=== PATIENT | female | born 1965 | race Caucasian/White ===

== ENCOUNTER 2021-10-13 15:06 | Emergency (ER) | payer MEDICAID ==
[~2021-10-13] VITALS: Ht 170.2 cm; Wt 75.0 kg
[2021-10-13 15:12] VITALS: BP 100/65
[2021-10-13] MEDS ORDERED: SERT-158 PO (16:09)
[2021-10-13] MEDS ORDERED: TEMA15CA PO (16:09)
[2021-10-13] MEDS ORDERED: CLON-592 PO (16:09)
[2021-10-13] MEDS ORDERED: HYDROCODONE/ACETAMINOPHEN 10-325 MG TABLET PO ONE (16:45)
[2021-10-13] MEDS ORDERED: NAPR-1024 PO (16:51)
== END 2021-10-13 17:04 | disposition home or self-care (01) ==
LOC: EMS 15:10
DX: M19.041 Primary osteoarthritis, right hand (principal); M19.042 Primary osteoarthritis, left hand; Z88.2 Allergy status to sulfonamides; Z79.899 Other long term (current) drug therapy
CPT/HCPCS: 99283

== ENCOUNTER 2022-10-31 17:06 | Emergency (ER) | payer MEDICAID ==
[~2022-10-31] VITALS: Ht 172.7 cm; Wt 81.8 kg
[~2022-10-31 17:06] MED LIST: CLON-592 PO; NAPR-1024 PO; SERT-158 PO; TEMA15CA PO
[2022-10-31] MEDS ORDERED: LIDOCAINE 1% 10 ML VIAL SQ ONE (19:15)
[2022-10-31] MEDS ORDERED: KETOROLAC TROMETHAMINE 60 MG/2 ML VIAL IM ONE (19:15)
[2022-10-31] MEDS ORDERED: DOXYCYCLINE HYCLATE 100 MG TABLET PO ONE (19:15)
[2022-10-31] MEDS ORDERED: HYDROCODONE/ACETAMINOPHEN 5-325 MG TABLET PO ONE (19:15)
[2022-10-31] MEDS ORDERED: IBUP-1554 PO (20:19)
[2022-10-31] MEDS ORDERED: DOXY-354 PO (20:19)
[2022-10-31] MEDS ORDERED: CEPH-558 PO (20:19)
[2022-10-31] MEDS ORDERED: HYDR-4072 PO (20:19)
[2022-10-31 20:39] VITALS: BP 134/82
== END 2022-10-31 20:45 | disposition home or self-care (01) ==
LOC: EMS 17:07
DX: L02.212 Cutaneous abscess of back [any part, except buttock and flank] (principal); Z88.2 Allergy status to sulfonamides
CPT/HCPCS: 99283; 10060; 96372; J1885; J3490

== ENCOUNTER 2022-11-03 15:26 | Emergency (ER) | payer MEDICAID ==
[~2022-11-03] VITALS: Ht 170.2 cm; Wt 86.4 kg
[~2022-11-03 15:26] MED LIST changes: +CEPH-558 PO; +DOXY-354 PO; +HYDR-4072 PO; +IBUP-1554 PO
[2022-11-03 15:53] VITALS: BP 149/121
== END 2022-11-03 16:14 | disposition home or self-care (01) ==
LOC: EMS 15:26
DX: L02.212 Cutaneous abscess of back [any part, except buttock and flank] (principal); Z88.2 Allergy status to sulfonamides
CPT/HCPCS: 99283; Z7502

== ENCOUNTER 2022-11-06 15:55 | Emergency (ER) | payer MEDICAID ==
[~2022-11-06] VITALS: Ht 170.2 cm; Wt 86.4 kg
[2022-11-06 16:06] VITALS: BP 106/62
[2022-11-06] MEDS ORDERED: HYDR-4723 PO (16:06)
== END 2022-11-06 18:18 | disposition home or self-care (01) ==
LOC: EMS 16:08
DX: L02.212 Cutaneous abscess of back [any part, except buttock and flank] (principal); Z88.2 Allergy status to sulfonamides
CPT/HCPCS: 99281; Z7502

== ENCOUNTER 2022-11-09 11:59 | Emergency (ER) | payer MEDICAID ==
[~2022-11-09] VITALS: Ht 170.2 cm; Wt 86.3 kg
[~2022-11-09 11:59] MED LIST changes: -CEPH-558 PO; -CLON-592 PO; -DOXY-354 PO; -HYDR-4072 PO; +HYDR-4723 PO; -IBUP-1554 PO; -NAPR-1024 PO
[2022-11-09 12:01] VITALS: BP 129/75
== END 2022-11-09 14:32 | disposition home or self-care (01) ==
LOC: EMS 12:02
DX: L02.212 Cutaneous abscess of back [any part, except buttock and flank] (principal); Z88.2 Allergy status to sulfonamides
CPT/HCPCS: 99281; Z7502

== ENCOUNTER 2023-05-20 16:38 | Emergency (ER) | payer MEDICAID ==
[~2023-05-20] VITALS: Ht 170.2 cm; Wt 86.4 kg
[2023-05-20 16:49] VITALS: TEMP 98.3
[2023-05-20 18:34] VITALS: BP 133/74; PULSE 88; RESP 18
[2023-05-20] MEDS ORDERED: TRAZ-252 PO (18:54)
[2023-05-20] MEDS ORDERED: CLON1TAB12 PO (18:54)
[2023-05-20] MEDS ORDERED: SERT-439 PO (18:54)
[2023-05-20] MEDS ORDERED: BUPR-317 PO (18:54)
[2023-05-20] MEDS ORDERED: AMOX TR/POT CLAV 875 MG/125 MG TABLET PO ONE (19:00)
[2023-05-20] MEDS ORDERED: PredniSONE 20 MG TABLET PO ONE (19:00)
[2023-05-20] MEDS ORDERED: AMOX1TAB16 PO (19:33)
[2023-05-20] MEDS ORDERED: PRED-554 PO (19:33)
== END 2023-05-20 19:37 | disposition home or self-care (01) ==
LOC: EMS 16:39
DX: J34.0 Abscess, furuncle and carbuncle of nose (principal); Z88.2 Allergy status to sulfonamides
CPT/HCPCS: 99283; J7512

== ENCOUNTER 2024-07-30 12:59 | Emergency (ER) | payer MEDICAID ==
[~2024-07-30] VITALS: Ht 170.2 cm; Wt 86.4 kg
[~2024-07-30 12:59] MED LIST changes: +AMOX-457 PO; +BUPR-562 PO; +CLON1TAB12 PO; -HYDR-4723 PO; +PRED-554 PO; -SERT-158 PO; +SERT-439 PO; -TEMA15CA PO; +TRAZ-252 PO
[2024-07-30 13:20] VITALS: BP 106/64; PULSE 78; RESP 18; TEMP 98.9; O2SAT 95
[2024-07-30 14:04] LABS: COVID AG,FIA SOURCE NASAL SWAB
[2024-07-30 14:29] LABS: INFLUENZA TYPE A NEGATIVE FOR TYPE A (NEGATIVE); INFLUENZA TYPE B NEGATIVE FOR TYPE B (NEGATIVE); SARS-COV2 (COVID) ANTIGEN,FIA Negative (Negative)
== END 2024-07-30 18:34 | disposition left against medical advice (07) ==
LOC: EMS 12:59
DX: R06.02 Shortness of breath (principal); R05.9 Cough, unspecified; Z20.822 Contact with and (suspected) exposure to COVID-19; Z53.21 Procedure and treatment not carried out due to patient leaving prior to being seen by health care provider
CPT/HCPCS: 71045; 87804